=== PATIENT | female | born 1990 | race Caucasian/White ===

== ENCOUNTER 2016-07-20 06:16 | Inpatient (IN) | payer MEDICAID ==
[2016-07-20 09:50] LABS: Hematocrit 40 % (35-47); Hemoglobin 13.3 g/dl (12.0-16.0); Mean Corpuscular HGB Conc 33 g/dl (31-36); Mean Corpuscular Hemoglobin 31 pg (27-31); Mean Corpuscular Volume 93 fL (80-97); Mean Platelet Volume 8 um3 (7.4-10.4); Red Blood Count 4.31 10^6/ul (4.0-5.4); Red Cell Distribution Width 14 % (10.5-15); White Blood Count 14.3 10^3/ul (3.5-10.8)
[2016-07-20] MEDS ORDERED: Lactated Ringers 500 ml BAG* 500 ML IV SCH (14:00)
[2016-07-20] MEDS ORDERED: Dibucaine 1% 28.35 GM TUBE PR PRN (14:14)
[2016-07-20] MEDS ORDERED: Acetaminophen TAB* 325 MG PO PRN (14:14)
[2016-07-20] MEDS ORDERED: Glycerin ADULT SUPP PR PRN (14:14)
[2016-07-20] MEDS: Ibuprofen TAB* 600 MG PO PRN ×2 (15:20→20:58)
[2016-07-20] MEDS: Witch Hazel PAD* JAR TOPICAL PRN (15:21)
[2016-07-20] MEDS ORDERED: Simethicone CHEW TAB* 80 MG PO SCH (17:30)
[2016-07-20] MEDS: Docusate CAP* 100 MG PO SCH (20:58)
[2016-07-21] MEDS: Ibuprofen TAB* 600 MG PO PRN ×3 (03:40→16:59)
[2016-07-21 08:43] LABS: Hematocrit 38 % (35-47); Hemoglobin 12.6 g/dl (12.0-16.0); Mean Corpuscular HGB Conc 33 g/dl (31-36); Mean Corpuscular Hemoglobin 31 pg (27-31); Mean Corpuscular Volume 93 fL (80-97); Mean Platelet Volume 8 um3 (7.4-10.4); Red Blood Count 4.04 10^6/ul (4.0-5.4); Red Cell Distribution Width 14 % (10.5-15); White Blood Count 19.6 10^3/ul (3.5-10.8)
[2016-07-21] MEDS: Ferrous Gluconate TAB* 324 MG TAB PO SCH ×2 (10:02→21:49)
[2016-07-21] MEDS: Docusate CAP* 100 MG PO SCH ×3 (10:02→21:39)
[2016-07-21] MEDS: Witch Hazel PAD* JAR TOPICAL PRN (21:49)
[2016-07-22] MEDS: Ibuprofen TAB* 600 MG PO PRN ×3 (01:12→16:18)
[2016-07-22] MEDS: Docusate CAP* 100 MG PO SCH ×2 (08:15→16:19)
[2016-07-22 14:30] VITALS: BP 120/58
== END 2016-07-22 18:00 | disposition home or self-care (01) | DRG 560 ==
LOC: MCHOBOUT 06:16 → MCHOB 08:58
PROVIDERS: ADMIT Midwife; ATTEND Midwife
PROC: 10E0XZZ Delivery of Products of Conception, External Approach (ICD-10-PCS; principal; 2016-07-20)
PROC: 10907ZC Drainage of Amniotic Fluid, Therapeutic from Products of Conception, Via Natural or Artificial Opening (ICD-10-PCS; 2016-07-20)
DX: O69.81X0 Labor and delivery complicated by cord around neck, without compression, not applicable or unspecified (principal); Z37.0 Single live birth; Z3A.39 39 weeks gestation of pregnancy
CPT/HCPCS: 36415; 85025; 86850; 86900; 86901; A9270-GY

== ENCOUNTER 2016-09-23 21:28 | Emergency (ER) | payer OTHER ==
[2016-09-23 21:33] VITALS: BP 136/87
--- NOTE | 2016-09-23 22:23 | ED ---
Upper Extremity Pain - HPI Summary HPI Summary: Patient presents with a bump on her left wrist that she noticed tonight. She normally wears her watch on this wrist so she is unsure how long it has been there. She denies pain, N/T, or restricted ROM. No known trauma or injury. - History of Current Complaint Chief Complaint: EDExtremityUpper Stated Complaint: LUMP ON WRIST Time Seen by Provider: 09/23/16 21:36 Hx Obtained From: Patient Mechanism Of Injury: Unknown Onset/Duration: Atraumatic Timing: Constant Severity Initially: Mild Severity Currently: None Pain Location: Wrist Character: Unable to Describe - none Aggravating Factor(s): Nothing Alleviating Factor(s): Nothing Associated Signs & Symptoms: Positive: Swelling Related History: Dominant Hand Right - Allergies/Home Medications Allergies/Adverse Reactions: Allergies Allergy/AdvReac Type Severity Reaction Status Date / Time Vancomycin Allergy Hives Verified 09/23/16 22:02 PMH/Surg Hx/FS Hx/Imm Hx Psychiatric History: Reports: Hx Depression Infectious Disease History: No Infectious Disease History: Denies: Traveled Outside the [place] in Last 30 Days - Family History Known Family History: Positive: None - Social History Occupation: Employed Full-time Lives: With Family Alcohol Use: None Substance Use Type: Reports: None Smoking Status (MU): Never Smoked Tobacco Review of Systems Positive: Edema - blueberry size bump on volar aspect of left wrist. Negative: Myalgia, Decreased ROM Negative: Weakness, Paresthesia, Numbness All Other Systems Reviewed And Are Negative: Yes Physical Exam Triage Information Reviewed: Yes Vital Signs On Initial Exam: Initial Vitals Temp Pulse Resp BP Pulse Ox 98.5 F 82 18 136/87 100 09/23/16 21:30 09/23/16 21:30 09/23/16 21:30 09/23/16 21:30 09/23/16 21:30 Vital Signs Reviewed: Yes Appearance: Positive: Well-Appearing, No Pain Distress, Well-Nourished Skin: Positive: Warm, Skin Color Reflects Adequate Perfusion, Dry, Soft Head/Face: Positive: Normal Head/Face Inspection Eyes: Positive: EOMI, DELILAH, Conjunctiva Clear ENT: Positive: Hearing grossly normal Respiratory/Lung Sounds: Positive: Breath Sounds Present Cardiovascular: Positive: RRR Musculoskeletal: Positive: Strength/ROM Intact, Edema Left - blueberry size bump on volar aspect of left wrist. Negative: Pain @ Neurological: Positive: Sensory/Motor Intact, Alert, Oriented to Person Place, Time, NV Bundle Intact Distally Psychiatric: Positive: Affect/Mood Appropriate AVPU Assessment: Alert Diagnostics - Vital Signs Vital Signs Temp Pulse Resp BP Pulse Ox 09/23/16 22:00 98.5 F 82 18 136/87 100 09/23/16 21:30 98.5 F 82 18 136/87 100 - Laboratory Lab Statement: Any lab studies that have been ordered have been reviewed, and results considered in the medical decision making process. Course/Dx - Diagnoses Differential Diagnosis/HQI/PQRI: Positive: Arthritis, Bursitis, Contusion, Fracture (Closed), Hematoma, Strain, Sprain Provider Diagnoses: Ganglion of left wrist Discharge - Discharge Plan Condition: Stable Disposition: HOME Patient Education Materials: Ganglion Cysts (ED) Referrals: Demetrius Keith MD [Primary Care Provider] - Additional Instructions: Follow-up with your primary care provider if symptoms begin.
== END 2016-09-23 22:51 | disposition home or self-care (01) ==
LOC: ED 21:28
DX: M67.432 Ganglion, left wrist (principal); R60.9 Edema, unspecified
CPT/HCPCS: 99281